=== PATIENT | female | born 1990 | race Caucasian/White ===

== ENCOUNTER 2018-02-16 17:16 | Emergency (ER) | payer MEDICAID ==
[2018-02-16 18:08] LABS: APPEARANCE HAZY (CLEAR); COLOR YELLOW (YELLOW); GLUCOSE NEGATIVE (NEGATIVE); KETONE SMALL mg/dL (NEGATIVE); NITRITE NEGATIVE (NEGATIVE); PROTEIN TRACE mg/dL (NEGATIVE); UROBILINOGEN NORMAL (NORMAL)
[2018-02-16 18:09] LABS: BILIRUBIN NEGATIVE (NEGATIVE)
[2018-02-16 18:10] LABS: WHITE CELLS - URINE 25-50 /hpf (0-5)
[2018-02-16 18:11] LABS: RED CELLS - URINE 0-5 /hpf (0-5)
[2018-02-16 18:12] LABS: BACTERIA MODERATE /hpf (NONE SEEN)
[2018-02-16 18:38] LABS: HCG SERUM POSITIVE (NEGATIVE)
== END 2018-02-16 19:50 | disposition home or self-care (01) ==
LOC: D.ER 17:16
PROVIDERS: Emergency Medicine
DX: O23.41 Unspecified infection of urinary tract in pregnancy, first trimester (principal); Z3A.09 9 weeks gestation of pregnancy; J01.90 Acute sinusitis, unspecified

== ENCOUNTER → 2018-06-27 11:19 | Outpatient (CLI) | payer MEDICAID | END | disposition home or self-care (01) | LOC: D.LDO 11:19 | DX: O36.5920 Maternal care for other known or suspected poor fetal growth, second trimester, not applicable or unspecified (principal); Z3A.27 27 weeks gestation of pregnancy ==

== ENCOUNTER 2018-09-16 23:57 | Inpatient (IN) | payer MEDICAID ==
[~2018-09-16] VITALS: Ht 160 cm; Wt 90.7 kg
--- NOTE | ~2018-09-16 | OP ---
PATIENT NAME: CODY CAIN MEDICAL RECORD: [id number] LOCATION:[id number] ADMISSION DATE:09/16/18 SURGEON: ANGELIC CULLEN MD DATE OF OPERATION: 09/17/2018 DELIVERY NOTE PREDELIVERY DIAGNOSIS: at 39 weeks' gestation. POSTDELIVERY DIAGNOSIS: Mother delivered at 39 weeks. PROCEDURE: Induction of labor with vaginal delivery. ATTENDING: Angelic Cullen MD ANESTHETIC: Continuous lumbar/epidural. FINDINGS: Viable male infant, ROP presentation, Apgars are 8 and 9. Nuchal cord times 1. An 8-pound 4-ounce . First-degree lacerations of the vaginal wall anteriorly, repaired with 4-0 chromic. Placenta spontaneous and intact. ESTIMATED BLOOD LOSS: 300 cc. DISPOSITION: Mother and recovered in room. TRANSINT:[id number] Voice Confirmation ID: [id number] DOCUMENT ID: [id number] ANGELIC CULLEN MD at 1615 CC: [id number] DICTATION DATE: 09/17/18 1352 DIAGRAMMER AND SEAMER: 09/17/18 [address] [facility] [address] [place] [address]
[2018-09-17] MEDS ORDERED: PRENAVITE1 TAB PO (00:53)
[2018-09-17] MEDS ORDERED: CELEXA10 MG PO (00:53)
[2018-09-17 01:11] VITALS: BP 133/97; Ht 160 cm; Wt 90.7 kg
[2018-09-17 01:24] LABS: HEMATOCRIT 34.7 % (36.0-48.0); HEMOGLOBIN 11.8 g/dL (12-16); MCH 29.9 pg (26.0-34.0); MCV 88.1 fL (80.0-100.0); MEAN PLATELET VOLUME 11.3 fL (7.4-10.4); RBC 3.94 10x6/uL (4.00-5.40); RDW 13.6 % (11.5-14.5); WBC 13.9 10x3/uL (4.8-10.8)
[2018-09-17 01:44] LABS: APPEARANCE HAZY (CLEAR); BILIRUBIN NEGATIVE (NEGATIVE); COLOR YELLOW (YELLOW); GLUCOSE NEGATIVE (NEGATIVE); KETONE NEGATIVE (NEGATIVE); NITRITE NEGATIVE (NEGATIVE); PROTEIN 1+ mg/dL (NEGATIVE); UROBILINOGEN NORMAL (NORMAL)
[2018-09-17 01:46] LABS: BACTERIA MANY /hpf (NONE SEEN); EPITHELIAL CELLS 0-5 /hpf (0-5); RED CELLS - URINE 0-5 /hpf (0-5); WHITE CELLS - URINE 0-5 /hpf (0-5)
[2018-09-17 20:51] VITALS: BP 125/66
[2018-09-18 07:24] LABS: BASOPHILS 0.2 % (0-2); EOSINOPHILS 1.4 % (0-7); HEMATOCRIT 33.6 % (36.0-48.0); IMMATURE GRANULOCYTES 0.3 % (0-5); LYMPHOCYTES 24.5 % (15-50); MCH 28.9 pg (26.0-34.0); MCHC 32.7 g/dL (31.0-37.0); MCV 88.4 fL (80.0-100.0); MEAN PLATELET VOLUME 10.5 fL (7.4-10.4); MONOCYTES 5.3 % (2-11); NEUTROPHILS 68.3 % (40-80); PLATELET COUNT 219 10x3/uL (130-400); RDW 13.7 % (11.5-14.5); WBC 12.2 10x3/uL (4.8-10.8)
[2018-09-18 07:26] LABS: RAPID PLASMA REAGIN Non Reactive (Non Reactive)
[2018-09-18 08:28] VITALS: BP 122/71
[2018-09-18 12:45] VITALS: BP 127/68
== END 2018-09-18 15:50 | disposition home or self-care (01) | DRG 807 ==
LOC: D.LD 23:57
PROVIDERS: Obstetrics & Gynecology
PROC: 10907ZC Drainage of Amniotic Fluid, Therapeutic from Products of Conception, Via Natural or Artificial Opening (ICD-10-PCS; principal; 2018-09-17)
PROC: 10E0XZZ Delivery of Products of Conception, External Approach (ICD-10-PCS; 2018-09-17)
PROC: 0HQ9XZZ Repair Perineum Skin, External Approach (ICD-10-PCS; 2018-09-17)
DX: O69.81X0 Labor and delivery complicated by cord around neck, without compression, not applicable or unspecified (principal); Z37.0 Single live birth; Z3A.39 39 weeks gestation of pregnancy; O70.0 First degree perineal laceration during delivery

== ENCOUNTER 2018-09-21 11:18 | Outpatient (CLI) | payer MEDICAID ==
[~2018-09-21] VITALS: Ht 160 cm; Wt 87.3 kg
[~2018-09-21 11:18] MED LIST: CELEXA10 MG PO; PRENAVITE1 TAB PO
[2018-09-21 11:49] LABS: APPEARANCE CLOUDY (CLEAR); BACTERIA MODERATE /hpf (NONE SEEN); BILIRUBIN NEGATIVE (NEGATIVE); COLOR YELLOW (YELLOW); EPITHELIAL CELLS 0-5 /hpf (0-5); GLUCOSE NEGATIVE (NEGATIVE); KETONE NEGATIVE (NEGATIVE); NITRITE NEGATIVE (NEGATIVE); PROTEIN 2+ mg/dL (NEGATIVE); RED CELLS - URINE 0-5 /hpf (0-5); SPECIFIC GRAVITY 1.025 (1.005-1.020); UROBILINOGEN NORMAL (NORMAL)
[2018-09-21 12:12] LABS: HEMATOCRIT 44.4 % (36.0-48.0); HEMOGLOBIN 15.4 g/dL (12-16); MCH 30.3 pg (26.0-34.0); MCHC 34.7 g/dL (31.0-37.0); MCV 87.4 fL (80.0-100.0); MEAN PLATELET VOLUME 10.5 fL (7.4-10.4); PLATELET COUNT 390 10x3/uL (130-400); RBC 5.08 10x6/uL (4.00-5.40); RDW 13.7 % (11.5-14.5); WBC 20.4 10x3/uL (4.8-10.8)
[2018-09-21 12:14] LABS: ALBUMIN 3.2 g/dL (3.4-5.0); ALKALINE PHOSPHATASE 111 U/L (46-116); ALT (SGPT) 27 U/L (10-68); BILIRUBIN - TOTAL 0.27 mg/dL (0.2-1.3); CALC OSMOLALITY 277 mosm/kg (275-300); CALCIUM 9.7 mg/dL (8.5-10.1); CARBON DIOXIDE 19.2 mmol/L (21.0-32.0); CHLORIDE - SERUM 104 mmol/L (98-107); CREATININE - SERUM 0.9 mg/dL (0.6-1.3); GLUCOSE 119 mg/dL (74-106); PROTEIN - SERUM 8.3 g/dL (6.4-8.2); SODIUM 138 mmol/L (136-145); UREA NITROGEN 16 mg/dL (7-18); eGFR NON AFRICAN AMERICAN 79 mL/min (90-120)
[2018-09-21 12:57] LABS: LYMPHOCYTES 8 % (15-50); NEUTROPHILS 81 % (40-80); PLATELET ESTIMATE INCREASED; PLATELET MORPHOLOGY NORMAL PLT MORPH
[2018-09-21 20:37] VITALS: BP 114/77; Ht 160 cm; Wt 87.3 kg
[2018-09-22 01:50] VITALS: BP 99/52
[2018-09-22 07:12] LABS: BASOPHILS 0.1 % (0-2); EOSINOPHILS 2.5 % (0-7); HEMATOCRIT 37.8 % (36.0-48.0); IMMATURE GRANULOCYTES 0.5 % (0-5); LYMPHOCYTES 19.1 % (15-50); MCH 29.1 pg (26.0-34.0); MCHC 32.5 g/dL (31.0-37.0); MONOCYTES 5.1 % (2-11); NEUTROPHILS 72.7 % (40-80); PLATELET COUNT 315 10x3/uL (130-400); RBC 4.23 10x6/uL (4.00-5.40)
[2018-09-22 07:16] LABS: HEMOGLOBIN 12.3 g/dL (12-16); MCV 89.4 fL (80.0-100.0)
[2018-09-22 07:34] LABS: ALBUMIN 2.5 g/dL (3.4-5.0); ALKALINE PHOSPHATASE 85 U/L (46-116); BILIRUBIN - TOTAL 0.16 mg/dL (0.2-1.3); CALC OSMOLALITY 277 mosm/kg (275-300); CALCIUM 7.7 mg/dL (8.5-10.1); CARBON DIOXIDE 19.2 mmol/L (21.0-32.0); CHLORIDE - SERUM 107 mmol/L (98-107); CREATININE - SERUM 0.8 mg/dL (0.6-1.3); GLUCOSE 86 mg/dL (74-106); POTASSIUM - SERUM 3.5 mmol/L (3.5-5.1); PROTEIN - SERUM 6.6 g/dL (6.4-8.2); SODIUM 139 mmol/L (136-145); UREA NITROGEN 15 mg/dL (7-18); eGFR NON AFRICAN AMERICAN 90 mL/min (90-120)
[2018-09-22 07:35] LABS: ALT (SGPT) 18 U/L (10-68)
[2018-09-22 09:45] VITALS: BP 117/76
[2018-09-22] MEDS ORDERED: AUGMENTIN 875-11 TAB PO (13:02)
[2018-09-22] MEDS ORDERED: KEFLEX500 MG PO (13:02)
== END 2018-09-22 13:40 | disposition home or self-care (01) ==
LOC: D.ER 11:18 → D.LDO 11:18 → D.LD 11:18 → D.ER 16:03 → D.EDHOLD 16:03 → D.ER 18:17 → D.LD 18:20 → D.EDHOLD 18:20 → D.LD 23:20 → EDSTATUS 23:20 → D.LDO 09-22 13:40
PROVIDERS: Family Medicine
DX: O26.899 Other specified pregnancy related conditions, unspecified trimester (principal); Z3A.00 Weeks of gestation of pregnancy not specified

== ENCOUNTER 2020-04-30 18:40 | Emergency (ER) | payer MEDICAID ==
[~2020-04-30] VITALS: Ht 160 cm; Wt 73.6 kg
[~2020-04-30 18:40] MED LIST changes: +AUGMENTIN 875-11 TAB PO; +KEFLEX500 MG PO
[2020-04-30 18:47] VITALS: Ht 160 cm; Wt 73.6 kg
[2020-04-30 20:08] LABS: BASOPHILS 0.2 % (0-2); EOSINOPHILS 0.9 % (0-7); HEMATOCRIT 43.6 % (36.0-48.0); HEMOGLOBIN 14.3 g/dL (12-16); IMMATURE GRANULOCYTES 0.2 % (0-5); LYMPHOCYTES 31.5 % (15-50); MCH 29.5 pg (26.0-34.0); MCHC 32.8 g/dL (31.0-37.0); MCV 90.1 fL (80.0-100.0); MEAN PLATELET VOLUME 9.4 fL (7.4-10.4); MONOCYTES 13.9 % (2-11); NEUTROPHILS 53.3 % (40-80); PLATELET COUNT 282 10x3/uL (130-400); RBC 4.84 10x6/uL (4.00-5.40); RDW 12.4 % (11.5-14.5); WBC 4.5 10x3/uL (4.8-10.8)
[2020-04-30 20:12] LABS: APTT 32.7 SECONDS (22.8-39.4); INR 0.99 (0.85-1.17)
[2020-04-30 20:19] LABS: CALC OSMOLALITY 272 mosm/kg (275-300); CALCIUM 8.7 mg/dL (8.5-10.1); CARBON DIOXIDE 28.9 mmol/L (21.0-32.0); CHLORIDE - SERUM 102 mmol/L (98-107); CREATININE - SERUM 0.8 mg/dL (0.6-1.3); GLUCOSE 86 mg/dL (74-106); POTASSIUM - SERUM 3.7 mmol/L (3.5-5.1); SODIUM 137 mmol/L (136-145); UREA NITROGEN 12 mg/dL (7-18); eGFR NON AFRICAN AMERICAN 89 mL/min (90-120)
[2020-04-30 20:33] LABS: ALBUMIN 4.2 g/dL (3.4-5.0); ALKALINE PHOSPHATASE 42 U/L (30-120); ALT (SGPT) 15 U/L (10-68); BILIRUBIN - TOTAL 0.22 mg/dL (0.2-1.3); CKMB 0.1 U/L (0.0-3.6); CREATINE KINASE 84 UL (21-215); PRO BNP 36 pg/mL (0-125); PROTEIN - SERUM 8.3 g/dL (6.4-8.2)
[2020-04-30 20:34] LABS: TROPONIN-I < 0.017 ng/mL (0.000-0.060)
[2020-04-30] MEDS ORDERED: KLONOPIN0.5 MG PO (23:16)
[2020-04-30] MEDS ORDERED: AUGMENTIN 875-11 TAB PO (23:16)
[2020-05-01 00:07] VITALS: BP 120/84
== END 2020-05-01 00:07 | disposition home or self-care (01) ==
LOC: D.ER 18:40
PROVIDERS: Family Medicine
DX: H66.91 Otitis media, unspecified, right ear (principal); F41.9 Anxiety disorder, unspecified; J01.90 Acute sinusitis, unspecified; K21.9 Gastro-esophageal reflux disease without esophagitis; R05 Cough; R07.9 Chest pain, unspecified

== ENCOUNTER → 2021-04-13 15:45 | Outpatient (CLI) | payer MEDICAID ==
[~2021-04-13 15:45] MED LIST changes: +KLONOPIN0.5 MG PO
[2021-04-13 16:38] LABS: BASOPHILS 0.4 % (0-2); HEMATOCRIT 30.3 % (36.0-48.0); HEMOGLOBIN 10.1 g/dL (12-16); LYMPHOCYTES 21.1 % (15-50); MCH 28.2 pg (26.0-34.0); MCHC 33.3 g/dL (31.0-37.0); MCV 84.7 fL (80.0-100.0); MEAN PLATELET VOLUME 8.5 fL (7.4-10.4); MONOCYTES 6.6 % (2-11); NEUTROPHILS 70.9 % (40-80); PLATELET COUNT 234 10x3/uL (130-400); RBC 3.58 10x6/uL (4.00-5.40); RDW 14.1 % (11.5-14.5); WBC 11.3 10x3/uL (4.8-10.8)
[2021-04-13 16:42] LABS: BILIRUBIN NEGATIVE (NEGATIVE); KETONE TRACE mg/dL (< 1+); NITRITE NEGATIVE (NEGATIVE); UROBILINOGEN NORMAL mg/dL (< 2)
[2021-04-13 16:44] LABS: CALC OSMOLALITY 281 mosm/kg (275-300); CALCIUM 8.2 mg/dL (8.5-10.1); CHLORIDE - SERUM 107 mmol/L (98-107); CREATININE - SERUM 0.7 mg/dL (0.6-1.3); GLUCOSE 103 mg/dL (74-106); POTASSIUM - SERUM 3.5 mmol/L (3.5-5.1); SODIUM 142 mmol/L (136-145); UREA NITROGEN 10 mg/dL (7-18); eGFR NON AFRICAN AMERICAN > 90 mL/min (90-120)
[2021-04-13 16:50] LABS: ALBUMIN 2.4 g/dL (3.4-5.0); ALKALINE PHOSPHATASE 97 U/L (30-120); ALT (SGPT) 17 U/L (10-68); BILIRUBIN - TOTAL 0.17 mg/dL (0.2-1.3); PROTEIN - SERUM 5.9 g/dL (6.4-8.2)
[2021-04-13 19:32] VITALS: BMI 28.7
== END | disposition home or self-care (01) ==
LOC: D.LDO 15:45
PROVIDERS: ATTEND Obstetrics & Gynecology
DX: O35.9XX0 Maternal care for (suspected) fetal abnormality and damage, unspecified, not applicable or unspecified (principal)